=== PATIENT | male | born 1980 | race Caucasian/White ===

== ENCOUNTER → 2019-09-16 09:09 | Outpatient (BNVA) | payer MEDICARE, MEDICAID, SELFPAY | PROVIDERS: PCP Nurse Practitioner Family; Visit Provider Psychiatry & Neurology Psychiatry | DX: Z79.899 Other long term (current) drug therapy (principal) | CPT/HCPCS: 85007; 85027 ==

== ENCOUNTER → 2019-10-06 09:09 | Outpatient (BNVA) | payer MEDICARE, MEDICAID, SELFPAY | PROVIDERS: PCP Nurse Practitioner Family; Visit Provider Psychiatry & Neurology Psychiatry | DX: F20.89 Other schizophrenia (principal); F33.42 Major depressive disorder, recurrent, in full remission; F17.210 Nicotine dependence, cigarettes, uncomplicated | CPT/HCPCS: 99213 ==

== ENCOUNTER → 2019-10-18 10:53 | Outpatient (BNVA) | payer MEDICARE, MEDICAID, SELFPAY | PROVIDERS: PCP Nurse Practitioner Family; Visit Provider Psychiatry & Neurology Psychiatry | DX: Z79.899 Other long term (current) drug therapy (principal) | CPT/HCPCS: 85007; 85027 ==

== ENCOUNTER → 2019-11-30 08:05 | Outpatient (BNVA) | payer MEDICARE, MEDICAID, SELFPAY | PROVIDERS: PCP Nurse Practitioner Family; Visit Provider Psychiatry & Neurology Psychiatry | DX: F33.42 Major depressive disorder, recurrent, in full remission (principal); F20.89 Other schizophrenia; F17.210 Nicotine dependence, cigarettes, uncomplicated | CPT/HCPCS: 99214 ==

== ENCOUNTER → 2020-01-25 07:34 | Outpatient (BNVA) | payer MEDICARE, MEDICAID, SELFPAY | PROVIDERS: PCP Nurse Practitioner Family; Visit Provider Psychiatry & Neurology Psychiatry | DX: F20.89 Other schizophrenia (principal); F33.42 Major depressive disorder, recurrent, in full remission; F17.210 Nicotine dependence, cigarettes, uncomplicated | CPT/HCPCS: 99213 ==

== ENCOUNTER → 2020-02-09 11:34 | Outpatient (BNVA) | payer MEDICARE, MEDICAID, SELFPAY | PROVIDERS: PCP Nurse Practitioner Family; Visit Provider Psychiatry & Neurology Psychiatry | DX: Z79.899 Other long term (current) drug therapy (principal) | CPT/HCPCS: 85007; 85027 ==

== ENCOUNTER → 2020-03-24 11:02 | Outpatient (BNVA) | payer MEDICARE, MEDICAID, SELFPAY | PROVIDERS: PCP Nurse Practitioner Family; Visit Provider Psychiatry & Neurology Psychiatry | DX: Z79.899 Other long term (current) drug therapy (principal) | CPT/HCPCS: 85007; 85027 ==

== ENCOUNTER → 2020-04-27 10:02 | Outpatient (BNVA) | payer MEDICARE, MEDICAID, SELFPAY | PROVIDERS: PCP Nurse Practitioner Family; Visit Provider Psychiatry & Neurology Psychiatry | DX: Z79.899 Other long term (current) drug therapy (principal) | CPT/HCPCS: 85007; 85027 ==

== ENCOUNTER → 2020-05-31 10:14 | Outpatient (BNVA) | payer MEDICARE, MEDICAID, SELFPAY | PROVIDERS: PCP Nurse Practitioner Family; Visit Provider Psychiatry & Neurology Psychiatry | DX: Z79.899 Other long term (current) drug therapy (principal) | CPT/HCPCS: 85007; 85027 ==

== ENCOUNTER → 2020-06-21 07:31 | Outpatient (BNVA) | payer MEDICARE, MEDICAID, SELFPAY | PROVIDERS: PCP Nurse Practitioner Family; Visit Provider Psychiatry & Neurology Psychiatry | DX: F33.42 Major depressive disorder, recurrent, in full remission (principal); F20.89 Other schizophrenia; F17.210 Nicotine dependence, cigarettes, uncomplicated | CPT/HCPCS: 99214 ==

== ENCOUNTER → 2020-07-04 09:40 | Outpatient (BNVA) | payer MEDICARE, MEDICAID, SELFPAY | PROVIDERS: PCP Nurse Practitioner Family; Visit Provider Psychiatry & Neurology Psychiatry | DX: Z79.899 Other long term (current) drug therapy (principal) | CPT/HCPCS: 85007; 85027 ==

== ENCOUNTER → 2020-07-17 07:46 | Outpatient (BNVA) | payer MEDICARE, MEDICAID, SELFPAY | PROVIDERS: PCP Nurse Practitioner Family; Visit Provider Psychiatry & Neurology Psychiatry | DX: F33.42 Major depressive disorder, recurrent, in full remission (principal); F20.89 Other schizophrenia; F17.210 Nicotine dependence, cigarettes, uncomplicated | CPT/HCPCS: 99213 ==

== ENCOUNTER → 2020-08-08 10:17 | Outpatient (BNVA) | payer MEDICARE, MEDICAID, SELFPAY | PROVIDERS: PCP Nurse Practitioner Family; Visit Provider Psychiatry & Neurology Psychiatry | DX: Z79.899 Other long term (current) drug therapy (principal) | CPT/HCPCS: 85007; 85027 ==

== ENCOUNTER → 2020-09-05 10:10 | Outpatient (BNVA) | payer MEDICARE, MEDICAID, SELFPAY | PROVIDERS: PCP Nurse Practitioner Family; Visit Provider Psychiatry & Neurology Psychiatry | DX: F20.89 Other schizophrenia (principal); Z79.899 Other long term (current) drug therapy | CPT/HCPCS: 85007; 85027 ==

== ENCOUNTER → 2020-09-11 08:28 | Outpatient (BNVA) | payer MEDICARE, MEDICAID, SELFPAY | PROVIDERS: PCP Nurse Practitioner Family; Visit Provider Psychiatry & Neurology Psychiatry | DX: F33.42 Major depressive disorder, recurrent, in full remission (principal); F20.89 Other schizophrenia; F17.210 Nicotine dependence, cigarettes, uncomplicated | CPT/HCPCS: 99214 ==

== ENCOUNTER → 2020-10-09 09:09 | Outpatient (BNVA) | payer MEDICARE, MEDICAID, SELFPAY | PROVIDERS: PCP Nurse Practitioner Family; Visit Provider Psychiatry & Neurology Psychiatry | DX: F20.89 Other schizophrenia (principal); Z79.899 Other long term (current) drug therapy | CPT/HCPCS: 85007; 85027 ==

== ENCOUNTER 2020-10-23 12:36 | Outpatient (CLI) | payer MEDICARE, MEDICAID, SELFPAY ==
[2020-10-23 13:43] LABS: Basophils % 0.3 %; Eosinophils # 0.2 10^3/uL (0.0-0.8); Eosinophils % 1.5 %; Hematocrit 50.4 % (42.0-52.0); Hemoglobin 16.8 g/dL (11.7-16.6); Lymphocytes # 1.9 10^3/uL (0.8-4.8); Lymphocytes % 18.9 %; Mean Corpuscular HGB Conc 33.3 g/dL (30.0-36.0); Mean Corpuscular Hemoglobin 33.3 pg (28.0-34.0); Mean Platelet Volume 12.1 fL (7.4-10.4); Monocytes # 0.4 10^3/uL (0.2-0.9); Monocytes % 4.3 %; Neutrophils # 7.47 10^3/uL (1.8-7.7); Neutrophils % 74.6 %; Nucleated Red Blood Cells % 0 %; Platelet Count 85 10^3/cmm (130-400); Red Blood Count 5.04 10^6/uL (4.1-5.3); Red Cell Distribution Width 13.4 % (12.1-15.1)
--- NOTE | 2020-10-23 15:32 | ONC FU_ITS ---
Dr. Enriquez follow up note Patient: Jose Medina Unit #: [id number]: 1980 Dicatated By: Deann Enriquez M.D.Date of Visit:Oct 23, 2020 Onc Med Follow-up/Prog Note History of Present Illness: Mr. Jose Medina, is a 39-year-old gentleman with a history of self-limiting thrombocytopenia about a year ago, as per patient at that time he went to local urgent care where his repeat CBC shows resolution of isolated thrombocytopenia, as per patient he was followed on monthly basis and follow-up lab work-up did not show recurrence of thrombocytopenia until recently when his lab work-up done on October 09, 2020 which shows white blood count 9.2 hemoglobin 17.2 hematocrit 51.1 platelets 74,000. As per patient in September 2020, he did develop flulike symptoms, lethargic generalized weakness and fatigue, poor appetite and taste, not sure about loss of smell since. Symptoms lasted for a few days then improved on its own. Patient works at [employer] said no one takes COVID-19 precautions there, there is a good possibility he may have exposed to COVID-19 positive person. Patient denies any history of night sweats, weight loss, recurrent fever or peripheral lymphadenopathy or abdominal fullness. Denies any nosebleed or gum bleed or hemoptysis or hematemesis, denies any melena or hematochezia denies any jaundice. Patient denies any alcohol use but smoked 1 pack a day His past medical history significant for depression, schizophrenia, he is on clozapine, Celexa, propanolol, atropine 1% sublingual twice a day. Medications: amLODIPine Besylate 1 Tablet (of 5 mg) Oral daily, CeleXA 1 Tablet (of 40 mg) Oral daily, cloZAPine 1.5 Tablet (of 100 mg) Oral at bedtime, diazePAM 1 Tablet (of 5 mg) Oral t.i.d., Propranolol HCl 1 Tablet (of 40 mg) Oral t.i.d. Allergies: No Known Allergies. Review of Systems: Review of Systems is not available for this patient. Vital Signs: Performed on Oct 23, 2020 14:22 Weight - 192.4 lbs (HIGH) BSA - 0.00 sq.m BMI - 0.00 Temperature - 97.7 F (LOW) Pulse - 70 /min Respiration - 18 /min BP - 146/101 mm(hg) (HIGH) O2 Sat - 98 % Pain - 4 Fatigue - 7 Performance Status: 0 - Fully active, able to carry on all predisease activities without restrictions. (ECOG) Physical Examination: ENMT - No mouth sores, no thrush, no jaundice, Respiratory - Lungs are clear to auscultation, Cardiovascular - Regular rate and rhythm of heart, Abdomen - Soft, bowel sounds present, Extremities - No visible edema, no peripheral lymphadenopathy. Lab/Imaging: Most recent lab results are not available for this patient. Impression: Isolated thrombocytopenia, etiology could be multifactorial including recurrent ITP or drug-induced ITP especially with citalopram (Celexa) or bone marrow suppression due to clozapine or due to history of subclinical viral infection ? Covid 19 But never been tested. Mild polycythemia probably due to chronic smoking Depression/schizophrenia Chronic smoking Plan: Discussed with patient regarding his labs from today shows white blood count 10 hemoglobin 16.8 hematocrit 50.4 platelets 85,000 compared to 74,000 earlier Clinically, patient doing well with no new signs symptom suggestive of gross or microscopic bleeding, his follow-up CBC shows improvement in his platelet count At this point we will review his peripheral blood smear, to rule out any platelet clumping. As far as etiology of isolated thrombocytopenia is concerned, it could be recurrent ITP as patient has history of self-limiting isolated thrombocytopenia. Other possibility could be drug-induced ITP especially with Celexa or could be due to clozapine induced bone marrow suppression but his white blood count is normal and leukopenia is more common than thrombocytopenia. As patient has history of self-limiting isolated thrombocytopenia, his follow-up labs shows improvement in his platelet count with a normal remaining CBC, we will monitor him and he will return to clinic in 2 weeks with CBC. Signed By: Deann Enriquez M.D. <<Signature on File>>
[2020-11-15 10:23] LABS: Miscellaneous Test See Scanned Lab Rpt
== END 2020-10-23 12:37 | disposition home or self-care (01) ==
LOC: ONCMED 12:39
PROVIDERS: PCP Family Medicine; Visit Provider Internal Medicine Hematology & Oncology
DX: D69.6 Thrombocytopenia, unspecified (principal); D75.1 Secondary polycythemia; F17.210 Nicotine dependence, cigarettes, uncomplicated; F32.9 Major depressive disorder, single episode, unspecified; F20.9 Schizophrenia, unspecified; Z79.899 Other long term (current) drug therapy
CPT/HCPCS: 36415; 80500; 85025; 88184; 88185; 99204

== ENCOUNTER → 2020-10-24 10:31 | Outpatient (BNVA) | payer MEDICARE, MEDICAID, SELFPAY | PROVIDERS: PCP Family Medicine; Visit Provider Specialist | DX: R20.0 Anesthesia of skin (principal); G56.23 Lesion of ulnar nerve, bilateral upper limbs; F17.210 Nicotine dependence, cigarettes, uncomplicated | CPT/HCPCS: 95910 ==

== ENCOUNTER → 2020-11-06 09:04 | Outpatient (BNVA) | payer MEDICARE, MEDICAID, SELFPAY | PROVIDERS: PCP Family Medicine; Visit Provider Psychiatry & Neurology Psychiatry | DX: F20.89 Other schizophrenia (principal); F33.42 Major depressive disorder, recurrent, in full remission; F17.210 Nicotine dependence, cigarettes, uncomplicated | CPT/HCPCS: 99213 ==

== ENCOUNTER → 2020-11-07 07:29 | Outpatient (BNVA) | payer MEDICARE, MEDICAID, SELFPAY | PROVIDERS: PCP Family Medicine; Visit Provider Psychiatry & Neurology Psychiatry | DX: F20.89 Other schizophrenia (principal); F33.42 Major depressive disorder, recurrent, in full remission | CPT/HCPCS: 99215 ==

== ENCOUNTER 2020-11-09 14:03 | Outpatient (CLI) | payer MEDICARE, MEDICAID, SELFPAY ==
[2020-11-09 15:06] LABS: Basophils # 0.1 10^3/uL (0.0-0.1); Basophils % 0.5 %; Eosinophils # 0.1 10^3/uL (0.0-0.8); Eosinophils % 1.1 %; Lymphocytes # 2.4 10^3/uL (0.8-4.8); Lymphocytes % 21.3 %; Mean Corpuscular Hemoglobin 33.2 pg (28.0-34.0); Mean Corpuscular Volume 97.5 fL (80-94); Monocytes # 0.5 10^3/uL (0.2-0.9); Monocytes % 4.8 %; Neutrophils # 7.96 10^3/uL (1.8-7.7); Neutrophils % 72.1 %; Nucleated Red Blood Cells % 0 %; Platelet Count 76 10^3/cmm (130-400); Red Blood Count 4.82 10^6/uL (4.1-5.3); Red Cell Distribution Width 12.7 % (12.1-15.1)
--- NOTE | 2020-11-09 15:58 | ONC FU_ITS ---
Dr. Enriquez follow up note Patient: Jose Medina Unit #: [id number]: 1980 Dicatated By: Deann Enriquez M.D.Date of Visit:Nov 09, 2020 Onc Med Follow-up/Prog Note History of Present Illness: Mr. Jose Medina, is a 39-year-old gentleman with a history of self-limiting thrombocytopenia about a year ago, as per patient at that time he went to local urgent care where his repeat CBC shows resolution of isolated thrombocytopenia, as per patient he was followed on monthly basis and follow-up lab work-up did not show recurrence of thrombocytopenia until recently when his lab work-up done on October 09, 2020 which shows white blood count 9.2 hemoglobin 17.2 hematocrit 51.1 platelets 74,000. As per patient in September 2020, he did develop flulike symptoms, lethargic generalized weakness and fatigue, poor appetite and taste, not sure about loss of smell since. Symptoms lasted for a few days then improved on its own. Patient works at [employer] said no one takes COVID-19 precautions there, there is a good possibility he may have exposed to COVID-19 positive person. Patient denies any history of night sweats, weight loss, recurrent fever or peripheral lymphadenopathy or abdominal fullness. Denies any nosebleed or gum bleed or hemoptysis or hematemesis, denies any melena or hematochezia denies any jaundice. Patient denies any alcohol use but smoked 1 pack a day His past medical history significant for depression, schizophrenia, he is on clozapine, Celexa, propanolol, atropine 1% sublingual twice a day., Peripheral blood smear shows questionable atypical cell and decreased platelets, whole blood flow cytometry was done on October 24, 2020 shows no aberrant myeloid or lymphoid population detected Came for follow-up, denies any specific complaints, no fever chills, no nausea or vomiting, no diarrhea or constipation, no melena or hematochezia, no nosebleed or gum bleed no petechia or ecchymosis Medications: amLODIPine Besylate 1 Tablet (of 5 mg) Oral daily, CeleXA 1 Tablet (of 40 mg) Oral daily, cloZAPine 1.5 Tablet (of 100 mg) Oral at bedtime, diazePAM 1 Tablet (of 5 mg) Oral t.i.d., Propranolol HCl 1 Tablet (of 40 mg) Oral t.i.d. Allergies: No Known Allergies. Review of Systems: Review of Systems is not available for this patient. Vital Signs: Performed on Nov 09, 2020 15:23 Height - 70 in Weight - 192 lbs (LOW) BSA - 2.05 sq.m BMI - 27.55 Temperature - 98.0 F (LOW) Pulse - 68 /min Respiration - 18 /min BP - 147/93 mm(hg) (HIGH) O2 Sat - 99 % Pain - 6 Performance Status: 0 - Fully active, able to carry on all predisease activities without restrictions. (ECOG) Physical Examination: ENMT - Mouth sores, no thrush, no jaundice, Respiratory - Lungs are clear to auscultation, Cardiovascular - Regular rate and rhythm of heart, Abdomen - Soft, bowel sounds present, Extremities - No visible edema. Lab/Imaging: Most recent lab results are not available for this patient. Impression: Isolated thrombocytopenia, etiology could be multifactorial including recurrent ITP or drug-induced ITP especially with citalopram (Celexa) or bone marrow suppression due to clozapine or due to history of subclinical viral infection ? Covid 19 But never been tested. Mild leukocytosis, questionable atypical cells seen on peripheral blood smear, whole blood flow cytometry done on October 24, 2020 shows no aberrant myeloid or lymphoid cell seen Mild polycythemia probably due to chronic smoking Depression/schizophrenia Chronic smoking Plan: Discussed with patient regarding his labs white blood count 11 hemoglobin 16 hematocrit 47 compared to 50.4 previously platelets 76,000 with normal differential And whole blood flow cytometry result which was unremarkable Clinically, patient doing well with no signs symptom suggestive of gross bleeding hemoglobin is in normal range but patient has persistent mild/moderate isolated thrombocytopenia, etiology unclear him but could be either drug-induced like Celexa or clozapine, as platelet count is stable so we will continue to monitor return to clinic in 1 month with CBC if there is a worsening of thrombocytopenia will consider abdominal sonogram to rule out splenomegaly and then hold either Celexa or clozapine, if no improvement, will consider bone marrow evaluation His peripheral blood smear showed atypical cells and his CBC showed mild leukocytosis whole blood flow cytometry was ordered and it showed no aberrant myeloid or lymphoid population detected. Signed By: Deann Enriquez M.D. <<Signature on File>>
== END 2020-11-09 14:04 | disposition home or self-care (01) ==
PROVIDERS: PCP Family Medicine; Visit Provider Internal Medicine Hematology & Oncology
DX: D69.3 Immune thrombocytopenic purpura (principal); D72.829 Elevated white blood cell count, unspecified; D75.1 Secondary polycythemia; F32.9 Major depressive disorder, single episode, unspecified; F20.9 Schizophrenia, unspecified; F17.200 Nicotine dependence, unspecified, uncomplicated; Z79.899 Other long term (current) drug therapy
CPT/HCPCS: 36415; 85025; 99214

== ENCOUNTER → 2020-11-20 13:10 | Outpatient (BNVA) | payer MEDICARE, MEDICAID, SELFPAY | PROVIDERS: PCP Family Medicine; Referring Provider Family Medicine; Visit Provider Specialist | DX: G56.23 Lesion of ulnar nerve, bilateral upper limbs (principal) | CPT/HCPCS: 73110 ==

== ENCOUNTER → 2020-11-22 08:09 | Outpatient (BNVA) | payer MEDICARE, MEDICAID, SELFPAY | PROVIDERS: PCP Family Medicine; Visit Provider Psychiatry & Neurology Psychiatry | DX: F20.89 Other schizophrenia (principal); F33.42 Major depressive disorder, recurrent, in full remission; F17.210 Nicotine dependence, cigarettes, uncomplicated; D69.6 Thrombocytopenia, unspecified | CPT/HCPCS: 99214 ==

== ENCOUNTER 2020-12-13 13:54 | Outpatient (CLI) | payer MEDICARE, MEDICAID, SELFPAY ==
[2020-12-13 14:44] LABS: Basophils % 0.4 %; Eosinophils # 0.2 10^3/uL (0.0-0.8); Eosinophils % 1.3 %; Hematocrit 47.3 % (42.0-52.0); Mean Corpuscular HGB Conc 33.8 g/dL (30.0-36.0); Mean Corpuscular Hemoglobin 33.2 pg (28.0-34.0); Mean Corpuscular Volume 98.1 fL (80-94); Mean Platelet Volume 12.2 fL (7.4-10.4); Monocytes # 0.6 10^3/uL (0.2-0.9); Monocytes % 5.2 %; Neutrophils # 8.45 10^3/uL (1.8-7.7); Neutrophils % 74.7 %; Nucleated Red Blood Cells % 0 %; Platelet Count 57 10^3/cmm (130-400); Red Blood Count 4.82 10^6/uL (4.1-5.3); White Blood Count 11.3 10^3/uL (4.0-10.0)
--- NOTE | 2021-01-05 12:09 | ONC FU_ITS ---
Dr. Enriquez follow up note Patient: Jose Medina Unit #: [id number]: 1980 Dicatated By: Deann Enriquez M.D.Date of Visit:December 13, 2020 Onc Med Follow-up/Prog Note History of Present Illness: Mr. Jose Medina, is a 40-year-old gentleman with a history of self-limiting thrombocytopenia about a year ago, as per patient at that time he went to local urgent care where his repeat CBC shows resolution of isolated thrombocytopenia, as per patient he was followed on monthly basis and follow-up lab work-up did not show recurrence of thrombocytopenia until recently when his lab work-up done on October 09, 2020 which shows white blood count 9.2 hemoglobin 17.2 hematocrit 51.1 platelets 74,000. As per patient in September 2020, he did develop flulike symptoms, lethargic generalized weakness and fatigue, poor appetite and taste, not sure about loss of smell since. Symptoms lasted for a few days then improved on its own. Patient works at [employer] said no one takes COVID-19 precautions there, there is a good possibility he may have exposed to COVID-19 positive person. Patient denies any history of night sweats, weight loss, recurrent fever or peripheral lymphadenopathy or abdominal fullness. Denies any nosebleed or gum bleed or hemoptysis or hematemesis, denies any melena or hematochezia denies any jaundice. Patient denies any alcohol use but smoked 1 pack a day His past medical history significant for depression, schizophrenia, he is on clozapine, Celexa, propanolol, atropine 1% sublingual twice a day., Peripheral blood smear shows questionable atypical cell and decreased platelets, whole blood flow cytometry was done on October 24, 2020 shows no aberrant myeloid or lymphoid population detected Came for follow-up, denies any specific complaints except generalized weakness and fatigue but no nausea or vomiting no diarrhea or constipation, no melena or hematochezia, no hemoptysis or hematemesis, no petechia or ecchymosis, no nosebleed or gum bleed Medications: amLODIPine Besylate 1 Tablet (of 5 mg) Oral daily, CeleXA 1 Tablet (of 40 mg) Oral daily, cloZAPine 1.5 Tablet (of 100 mg) Oral at bedtime, diazePAM 1 Tablet (of 5 mg) Oral t.i.d., Propranolol HCl 1 Tablet (of 40 mg) Oral t.i.d. Allergies: No Known Allergies. Review of Systems: Review of Systems is not available for this patient. Vital Signs: Performed on December 13, 2020 15:15 Height - 70.00 in Weight - 193.0 lbs (HIGH) BSA - 2.06 sq.m BMI - 27.69 Temperature - 97.4 F (LOW) Pulse - 67 /min Respiration - 18 /min BP - 134/91 mm(hg) O2 Sat - 98 % Pain - 0 Performance Status: 0 - Fully active, able to carry on all predisease activities without restrictions. (ECOG) Physical Examination: ENMT - No mouth sores, no thrush, no jaundice, no cervical or supraclavicular lymphadenopathy, Respiratory - Lungs are clear to auscultation, Cardiovascular - Regular rate and rhythm of heart, Abdomen - Soft, bowel sounds present, no tenderness, Extremities - No visible edema rash, petechiae or ecchymosis. Lab/Imaging: Most recent lab results are not available for this patient. Impression: Isolated thrombocytopenia, etiology could be multifactorial including recurrent ITP or drug-induced ITP especially with citalopram (Celexa) or bone marrow suppression due to clozapine or due to history of subclinical viral infection ? Covid 19 But never been tested. Mild leukocytosis, questionable atypical cells seen on peripheral blood smear, whole blood flow cytometry done on October 24, 2020 shows no aberrant myeloid or lymphoid cell seen Mild polycythemia probably due to chronic smoking Depression/schizophrenia Chronic smoking Plan: Discussed with patient regarding his labs white blood count 11.3 hemoglobin 16 hematocrit 47.3 platelets 57,000 compared to 76,000 previously with normal differential Clinically, patient is doing reasonably well with no sign of gross bleeding, CBC shows hemoglobin in normal range and stable, persistent mild leukocytosis with unremarkable whole blood flow cytometry, persistent but progressive moderate thrombocytopenia etiology still unclear could medication related like Celexa, at this point patient was advised to hold Celexa for 2 weeks and then he will return to clinic on Friday week with CBC in the meantime we will also order abdominal sonogram to check spleen size. If sonogram is normal and by holding Celexa there is no improvement in his thrombocytopenia, will consider bone marrow evaluation. Patient was advised in case he has any sign of bleeding, he need to call us or go to hospital for evaluation. Signed By: Deann Enriquez M.D. <<Signature on File>>
== END 2020-12-13 13:55 | disposition home or self-care (01) ==
LOC: ONCMED 13:59
PROVIDERS: PCP Family Medicine; Visit Provider Internal Medicine Hematology & Oncology
DX: D69.6 Thrombocytopenia, unspecified (principal); D75.1 Secondary polycythemia; F17.210 Nicotine dependence, cigarettes, uncomplicated; F32.9 Major depressive disorder, single episode, unspecified; F20.9 Schizophrenia, unspecified; Z79.899 Other long term (current) drug therapy
CPT/HCPCS: 85025; 99214

== ENCOUNTER 2020-12-22 06:50 | Outpatient (CLI) | payer MEDICARE, MEDICAID, SELFPAY ==
--- NOTE | 2020-12-22 07:10 | US_ITS ---
WS: [id number] Limited abdomen ultrasound. HISTORY: Evaluate spleen. History of thrombocytopenia. COMPARISON: None. Spleen measures 12.3 x 6.5 cm. Normal hilum of the spleen. No focal masses or abnormal echogenicity. No adjacent ascites. US/US abdomen limited [id number] IMPRESSION: Spleen is top normal size.
== END 2020-12-22 06:51 | disposition home or self-care (01) ==
PROVIDERS: PCP Family Medicine; Visit Provider Internal Medicine Hematology & Oncology
DX: D69.6 Thrombocytopenia, unspecified (principal)
CPT/HCPCS: 76705

== ENCOUNTER 2020-12-27 05:52 | Outpatient (CLI) | payer MEDICARE, MEDICAID, SELFPAY ==
[2020-12-27 09:12] LABS: Basophils % 0.5 %; Eosinophils # 0.2 10^3/uL (0.0-0.8); Eosinophils % 1.7 %; Hematocrit 45.2 % (42.0-52.0); Hemoglobin 15.2 g/dL (11.7-16.6); Lymphocytes # 1.8 10^3/uL (0.8-4.8); Mean Corpuscular HGB Conc 33.6 g/dL (30.0-36.0); Mean Corpuscular Hemoglobin 33.6 pg (28.0-34.0); Mean Corpuscular Volume 99.8 fL (80-94); Mean Platelet Volume 12.3 fL (7.4-10.4); Monocytes # 0.5 10^3/uL (0.2-0.9); Monocytes % 5.4 %; Neutrophils # 6.12 10^3/uL (1.8-7.7); Neutrophils % 71.2 %; Nucleated Red Blood Cells % 0 %; Platelet Count 61 10^3/cmm (130-400); Red Blood Count 4.53 10^6/uL (4.1-5.3); Red Cell Distribution Width 13.1 % (12.1-15.1); White Blood Count 8.6 10^3/uL (4.0-10.0)
--- NOTE | 2020-12-27 13:58 | ONC FU_ITS ---
Dr. Enriquez follow up note Patient: Jose Medina Unit #: [id number]: 1980 Dicatated By: Deann Enriquez M.D.Date of Visit:December 27, 2020 Onc Med Follow-up/Prog Note History of Present Illness: Mr. Jose Medina, is a 40-year-old gentleman with a history of self-limiting thrombocytopenia about a year ago, as per patient at that time he went to local urgent care where his repeat CBC shows resolution of isolated thrombocytopenia, as per patient he was followed on monthly basis and follow-up lab work-up did not show recurrence of thrombocytopenia until recently when his lab work-up done on October 09, 2020 which shows white blood count 9.2 hemoglobin 17.2 hematocrit 51.1 platelets 74,000. As per patient in September 2020, he did develop flulike symptoms, lethargic generalized weakness and fatigue, poor appetite and taste, not sure about loss of smell since. Symptoms lasted for a few days then improved on its own. Patient works at [employer] said no one takes COVID-19 precautions there, there is a good possibility he may have exposed to COVID-19 positive person. Patient denies any history of night sweats, weight loss, recurrent fever or peripheral lymphadenopathy or abdominal fullness. Denies any nosebleed or gum bleed or hemoptysis or hematemesis, denies any melena or hematochezia denies any jaundice. Patient denies any alcohol use but smoked 1 pack a day His past medical history significant for depression, schizophrenia, he is on clozapine, Celexa, propanolol, atropine 1% sublingual twice a day., Peripheral blood smear shows questionable atypical cell and decreased platelets, whole blood flow cytometry was done on October 24, 2020 shows no aberrant myeloid or lymphoid population detected Came for follow-up, denies any specific complaints, no fever chills, no nausea or vomiting, no diarrhea constipation, no nosebleed or gum bleed no petechia or ecchymosis, patient did not take Celexa for 2 weeks as recommended, To rule out medicine related thrombocytopenia Medications: amLODIPine Besylate 1 Tablet (of 5 mg) Oral daily, CeleXA 1 Tablet (of 40 mg) Oral daily, cloZAPine 1.5 Tablet (of 100 mg) Oral at bedtime, diazePAM 1 Tablet (of 5 mg) Oral t.i.d., Propranolol HCl 1 Tablet (of 40 mg) Oral t.i.d. Allergies: No Known Allergies. Review of Systems: Review of Systems is not available for this patient. Vital Signs: Performed on December 27, 2020 11:06 Height - 70.00 in Weight - 199.8 lbs (HIGH) BSA - 2.09 sq.m BMI - 28.67 Temperature - 98.0 F (LOW) Pulse - 63 /min Respiration - 18 /min BP - 154/99 mm(hg) (HIGH) O2 Sat - 96 % Pain - 0 Performance Status: 0 - Fully active, able to carry on all predisease activities without restrictions. (ECOG) Physical Examination: ENMT - No mouth sores, no thrush, no jaundice, Respiratory - Lungs are clear to auscultation, Cardiovascular - Regular rate and rhythm of heart, Abdomen - Soft, bowel sounds present, Extremities - No visible edema, rash , Ecchymosis or petechiae. Lab/Imaging: Most recent lab results are not available for this patient. Impression: Isolated thrombocytopenia, etiology could be multifactorial including recurrent ITP or drug-induced ITP especially with citalopram (Celexa) or bone marrow suppression due to clozapine or due to history of subclinical viral infection ? Covid 19 But never been tested. Mild leukocytosis, questionable atypical cells seen on peripheral blood smear, whole blood flow cytometry done on October 24, 2020 shows no aberrant myeloid or lymphoid cell seen Mild polycythemia probably due to chronic smoking Depression/schizophrenia Chronic smoking Abdominal sonogram done on December 22, 2020 shows no splenomegaly Plan: Discussed with patient regarding his labs white blood count 8.6 hemoglobin 15.2 hematocrit 45.2 platelets 61,000 Clinically, patient doing well with no new signs symptoms, no evidence of gross bleeding, his follow-up labs shows persistent mild/moderate isolated thrombocytopenia, his abdominal sonogram shows no splenomegaly, patient was advised to hold Celexa for 2 weeks to see if his thrombocytopenia is due to Celexa but there is no improvement in his counts, at this point we will consider bone marrow evaluation to rule out primary bone marrow disorder, patient return to clinic in 1 week after bone marrow evaluation Signed By: Deann Enriquez M.D. <<Signature on File>>
== END 2020-12-27 05:53 | disposition home or self-care (01) ==
LOC: ONCMED 05:54
PROVIDERS: PCP Family Medicine; Visit Provider Internal Medicine Hematology & Oncology
DX: D69.6 Thrombocytopenia, unspecified (principal); D72.820 Lymphocytosis (symptomatic); D75.1 Secondary polycythemia; F17.210 Nicotine dependence, cigarettes, uncomplicated; F32.9 Major depressive disorder, single episode, unspecified; F20.9 Schizophrenia, unspecified; Z79.899 Other long term (current) drug therapy
CPT/HCPCS: 36415; 85025; 99214

== ENCOUNTER → 2021-01-03 07:43 | Outpatient (BNVA) | payer MEDICARE, MEDICAID, SELFPAY | PROVIDERS: PCP Family Medicine; Visit Provider Psychiatry & Neurology Psychiatry | DX: F20.89 Other schizophrenia (principal); F33.42 Major depressive disorder, recurrent, in full remission; F17.210 Nicotine dependence, cigarettes, uncomplicated | CPT/HCPCS: 99215 ==

== ENCOUNTER → 2021-02-23 09:31 | Outpatient (BNVA) | payer MEDICARE, MEDICAID, SELFPAY | PROVIDERS: PCP Family Medicine; Visit Provider Psychiatry & Neurology Psychiatry | DX: F20.89 Other schizophrenia (principal); Z79.899 Other long term (current) drug therapy | CPT/HCPCS: 85007; 85027 ==

== ENCOUNTER → 2021-03-01 10:24 | Outpatient (BNVA) | payer MEDICARE, MEDICAID, SELFPAY | PROVIDERS: PCP Family Medicine; Visit Provider Psychiatry & Neurology Psychiatry | DX: F20.89 Other schizophrenia (principal); F33.42 Major depressive disorder, recurrent, in full remission; F17.210 Nicotine dependence, cigarettes, uncomplicated; F41.1 Generalized anxiety disorder | CPT/HCPCS: 99215 ==

== ENCOUNTER → 2021-03-29 09:54 | Outpatient (BNVA) | payer MEDICARE, MEDICAID, SELFPAY | PROVIDERS: PCP Family Medicine; Visit Provider Psychiatry & Neurology Psychiatry | DX: F33.42 Major depressive disorder, recurrent, in full remission (principal); F41.1 Generalized anxiety disorder; F20.89 Other schizophrenia; Z79.899 Other long term (current) drug therapy; R20.0 Anesthesia of skin; D69.6 Thrombocytopenia, unspecified; N53.14 Retrograde ejaculation; F17.210 Nicotine dependence, cigarettes, uncomplicated | CPT/HCPCS: 85007; 85027; 99214 ==

== ENCOUNTER → 2021-05-04 10:01 | Outpatient (BNVA) | payer MEDICARE, MEDICAID, SELFPAY | PROVIDERS: PCP Family Medicine; Visit Provider Psychiatry & Neurology Psychiatry | DX: F20.89 Other schizophrenia (principal); Z79.899 Other long term (current) drug therapy | CPT/HCPCS: 85007; 85027 ==

== ENCOUNTER 2021-05-17 06:00 | Outpatient (RCR) | payer MEDICARE, MEDICAID, SELFPAY | END 2021-06-10 23:59 | disposition home or self-care (01) | LOC: TPT 06:00 | PROVIDERS: PCP Family Medicine; Referring Provider Family Medicine; Visit Provider Family Medicine | DX: G56.22 Lesion of ulnar nerve, left upper limb (principal) | CPT/HCPCS: 97110; 97140; 97162 ==

== ENCOUNTER → 2021-05-23 08:38 | Outpatient (BNVA) | payer MEDICARE, MEDICAID, SELFPAY | PROVIDERS: PCP Family Medicine; Visit Provider Specialist | DX: G56.23 Lesion of ulnar nerve, bilateral upper limbs (principal); F17.210 Nicotine dependence, cigarettes, uncomplicated | CPT/HCPCS: 95861; 99202 ==

== ENCOUNTER 2021-06-11 06:00 | Outpatient (RCR) | payer MEDICARE, MEDICAID, SELFPAY | END 2021-07-10 23:59 | disposition home or self-care (01) | LOC: TPT 06:00 | PROVIDERS: PCP Family Medicine; Referring Provider Family Medicine; Visit Provider Family Medicine | DX: G56.22 Lesion of ulnar nerve, left upper limb (principal) | CPT/HCPCS: 97110; 97140; 97164 ==

== ENCOUNTER → 2021-06-12 10:15 | Outpatient (BNVA) | payer MEDICARE, MEDICAID, SELFPAY | PROVIDERS: PCP Family Medicine; Visit Provider Psychiatry & Neurology Psychiatry | DX: F20.89 Other schizophrenia (principal); Z79.899 Other long term (current) drug therapy | CPT/HCPCS: 85007; 85027 ==

== ENCOUNTER → 2021-06-14 13:57 | Outpatient (BNVA) | payer MEDICARE, MEDICAID, SELFPAY | PROVIDERS: PCP Family Medicine; Visit Provider Psychiatry & Neurology Psychiatry | DX: F20.89 Other schizophrenia (principal); F33.42 Major depressive disorder, recurrent, in full remission; F17.210 Nicotine dependence, cigarettes, uncomplicated; F41.1 Generalized anxiety disorder | CPT/HCPCS: 99214 ==

== ENCOUNTER → 2021-06-26 17:37 | Outpatient (BNVA) | payer MEDICARE, MEDICAID, SELFPAY | PROVIDERS: PCP Family Medicine; Visit Provider Nurse Practitioner Family | DX: Z20.822 Contact with and (suspected) exposure to COVID-19 (principal); Z11.52 Encounter for screening for COVID-19 | CPT/HCPCS: 87635 ==

== ENCOUNTER → 2021-08-15 14:02 | Outpatient (BNVA) | payer MEDICARE, MEDICAID, SELFPAY | PROVIDERS: PCP Family Medicine; Visit Provider Psychiatry & Neurology Psychiatry | DX: F20.89 Other schizophrenia (principal); Z79.899 Other long term (current) drug therapy | CPT/HCPCS: 85007; 85027 ==

== ENCOUNTER → 2021-08-20 10:20 | Outpatient (BNVA) | payer MEDICARE, MEDICAID, SELFPAY | PROVIDERS: PCP Family Medicine; Visit Provider Specialist | DX: Z20.822 Contact with and (suspected) exposure to COVID-19 (principal); G56.03 Carpal tunnel syndrome, bilateral upper limbs; Z01.818 Encounter for other preprocedural examination | CPT/HCPCS: 87635 ==

== ENCOUNTER 2021-08-24 09:00 | Day surgery (SDC) | payer MEDICARE, MEDICAID, SELFPAY ==
[2021-08-23 12:16] VITALS: BMI 24.2
[2021-08-24] VITALS (8 sets, daily range): BP systolic 141–164; BP diastolic 100–117; PULSE 58–68; RESP 12–18; TEMP 36.1–36.6; O2SAT 95–100
--- NOTE | 2021-08-24 10:03 | W.PM.OPSUD ---
Surgery/Procedure H&P Update DATE OF PROCEDURE: August 24, 2021 DATE H&P PERFORMED: 07/30/22 PREOP DIAGNOSIS: Right cubital tunnel syndrome PLANNED PROCEDURE: Operation Date: 08/24/21 10:30 Proposed Procedures p Cubital Tunnel Release [id number] G56.20(Right) - Deandra Howard MD Related Problem List Diagnoses (1) Entrapment of right ulnar nerve at elbow:
[2021-08-24] MEDS: acetaminophen 1,000 MG/100 ML PIGGYBACK 400 MG IV (10:10)
[2021-08-24] MEDS: sodium chloride 0.9% 1,000 ML 30 ML IV (10:10)
--- NOTE | 2021-08-24 10:19 | ANES.PREANE2 ---
Pre-Anesthetic Assessment Pre-Anesthetic Assessment: Height/Weight: Height 1.78 m Weight 76.657 kg Temp Pulse Resp Pulse Ox 97.8 F 68 16 100 08/24/21 09:49 08/24/21 09:49 08/24/21 09:49 08/24/21 09:49 Preop Diagnosis: Right cubital tunnel syndrome Proposed Procedure: Operation Date: 08/24/21 10:30 Proposed Procedures p Cubital Tunnel Release 46563 G56.20(Right) - Deandra Howard MD Familial anesthetic complications: None Was Beta Felipe taken within 24 hours: N/A Was Clonidine taken within 24 hours: N/A Last intake: Intake Last Liquid Date 08/23/21 Last Liquid Time 20:30 Last Solid Date 08/23/21 Last Solid Time 18:30 Social: Social History: Tobacco and No alcohol Exam: Pre-Anes Outpt Exam: alert, oriented x 3, clear to auscultation bilaterally and regular rate & rhythm Airway: MP: 2 Dentition: False Neuropsych: Neuropsych: Anxiety and Depression Anesthetic Plan: ASA status: 2 Anesthesia: MAC and Regional (specify below) Risk of > 500 ml blood loss (7ml/kg in children): No PFSH Anesthesia PFSH: Medical History Cigarette smoker Major depression, recurrent, full remission Other schizophrenia Other stimulant dependence, in remission Psychiatric care Social History Quit status (tobacco): considering quitting Second hand smoke exposure: Yes Data Anesthesia Cardiac Studies: No Data to Display
[2021-08-24] MEDS: CELEcoxib 200 mg Capsule 400 MG PO (10:25)
[2021-08-24 10:43] LABS: Basophils % 0.4 %; Eosinophils # 0.2 10^3/uL (0.0-0.8); Eosinophils % 1.7 %; Hematocrit 47.1 % (42.0-52.0); Hemoglobin 15.6 g/dL (11.7-16.6); Lymphocytes # 2.2 10^3/uL (0.8-4.8); Mean Corpuscular HGB Conc 33.1 g/dL (30.0-36.0); Mean Corpuscular Hemoglobin 33.1 pg (28.0-34.0); Mean Platelet Volume 12.4 fL (7.4-10.4); Monocytes # 0.5 10^3/uL (0.2-0.9); Monocytes % 5.6 %; Neutrophils % 69.1 %; Nucleated Red Blood Cells % 0 %; Platelet Count 62 10^3/cmm (130-400); Red Blood Count 4.71 10^6/uL (4.1-5.3); Red Cell Distribution Width 12.9 % (12.1-15.1); White Blood Count 9.4 10^3/uL (4.0-10.0)
[2021-08-24 11:01] LABS: Alanine Aminotransferase 41 U/L (0-41); Albumin Level 4.1 g/dL (3.5-5.2); Alkaline Phosphatase 85 IU/L (40-130); Aspartate Amino Transferase 41 U/L (0-40); Blood Urea Nitrogen 10 mg/dL (6-20); Calcium 8.8 mg/dL (8.5-10.5); Carbon Dioxide 25 mmol/L (22-29); Chloride 106 mmol/L (98-107); Globulin 2.2 g/dL (1.3-4.6); Glomerular Filtration Rate 123.7 mL/min (90-130); Glucose 83 mg/dL (65-115); Osmolality Calculated 294 mOsm/kg (285-295); Sodium 143 mmol/L (136-145); Total Protein 6.3 g/dL (6.6-8.7)
[2021-08-24] MEDS: ceFAZolin 1,000 mg SDV 1000 MG IRRIGATION (12:09)
--- NOTE | 2021-08-24 13:16 | P.PCN_ITS ---
PACU note PACU note: VSS, Good respiratory effort, report to FINAL RAIL CUTTER
--- NOTE | 2021-08-24 13:16 | PM.PACU ---
PACU note PACU note: VSS, Good respiratory effort, report to MEDICAL APPOINTMENT CLERK
--- NOTE | 2021-08-24 13:46 | PM.OP ---
Operative Report Date of procedure: August 24, 2021 Pre-op Diagnosis: Right cubital tunnel syndrome Post-op diagnosis: same Post-op Findings: Compression across the ulnar nerve at the cubital tunnel Procedure Done: Right ulnar nerve decompression at elbow, cubital tunnel release Specimens removed/disposition: None Pathology: none sent Surgeon: Deandra Howard Supervisor [employer] Storage: [facility] operating room technicians Anesthesia: General (ASA 2) Estimated blood loss (mL): 5 Tourniquet time (min): 48 Tourniquet time: At 250 mmHg IV fluids (mL): 700 Urine output (mL): 0 Urine output: No Galindo Complications: None Findings: Compression of the ulnar nerve at the level of the olecranon and slightly proximal. Discoloration of the ulnar nerve. Condition: stable Disposition: PACU (Then discharged to same days surgery to be discharged home with family) Brief History: This 40-year-old gentleman presented with complaints of severe pain, numbness, and tingling in the right ulnar nerve distribution within his hand. He had a very positive Tinel's test at the elbow, and he had electrodiagnostic studies demonstrating compression across the ulnar nerve at the level of the olecranon and slightly proximally. The patient was seen and evaluated in the clinic with his mother. Discussion was undertaken and plans were made for ulnar nerve release. Procedure: The patient was brought to the operating theater. The patient was administered a general anesthetic per LMA. Following this, the patient's right upper extremity was prepped and draped with DuraPrep. It was draped free and subsequently a sterile tourniquet was placed high on the arm. Following prepping and draping and prior to surgical incision, a surgical pause was performed. At the time of surgical pause, we confirmed the site and side of surgery as well as appropriate and timely administration of preoperative antibiotics. Following the surgical pause, the arm was exsanguinated using an Navi wrap. The tourniquet was elevated to 250 mmHg and total tourniquet time was 48 minutes. Following exsanguination and elevation of the tourniquet, landmarks were marked with a skin marker. We marked the medial epicondyle of the humerus as well as the tip of the olecranon. An incision was made at the point about midway between the two continuing for a total distance of approximately 4 cm. The dissection was continued through skin and soft tissues carefully. We also incised the flexor aponeurosis over the ulnar nerve taking care to isolate the ulnar nerve and avoid injury to it. The aponeurotic band over the nerve was divided and the nerve was traced distally between the two heads of the flexor carpi ulnaris muscle. Care was taken to protect neurovascular structures as well as any branches of the nerve. The fasciotomy of the flexor carpi ulnaris was accomplished to a point where I could pass my finger along the nerve and not feel any area which compressed my small finger. The ulnar nerve was left lying in its bed and it was also evaluated proximally to assure there were no further bands of compression. Gently I was able to extend the release proximally as well to assure that once again I could pass a small finger without any obvious areas which compressed across the ulnar nerve. In this fashion, we had completed the release of the entire cubital tunnel without injury to the nerve. Hemostasis was obtained using cautery. The nerve was noted to be purplish in this area. Once we had completely released proximally and distally and were able to palpate and directly visualize the nerve, attention was directed to closure. An intraneural lysis did not appear to be necessary. We then passively extended and flexed the elbow to assure that the nerve remained in its cubital area. Subluxation of the nerve did not occur and therefore attention was directed to closure. Skin closure was the only closure accomplished in addition to the subcutaneous tissues. We closed the subcutaneous tissues with [3-0 Monocryl] and subsequently closed the skin with a subcuticular 4-0 Monocryl. Patient was then placed in a large soft dressing consisting of Xeroform gauze, 4 x 4's, ABDs, sterile soft roll, a posterior splint and an Navi wrap. In the Recovery Room, the patient was neurologically intact. There were no complications. There were no specimens. The procedure was well tolerated. Patient will be discharged home to follow-up with me in the office. Associated Problem List Diagnoses (1) Entrapment of right ulnar nerve at elbow:
[2021-08-24] MEDS: HYDROcodone-acetaminophen 5-325 mg Tablet 1 TAB PO (13:48)
--- NOTE | 2021-08-24 15:12 | ANE.PACU2 ---
Inpatient post-anesthesia follow up: Airway intact: Yes Vital signs: Temperature 97.9 F Pulse Rate 62 Respiratory Rate 15 Blood Pressure 160/100 Pulse Oximetry 95 Oxygen Delivery Me thod Room Air Oxygen Flow Rate 4 Fraction of Inspir ed Oxygen Hydration adequate: Yes Nausea and vomiting: No Pain level: 1 Mental status: Baseline
== END 2021-08-24 14:35 | disposition home or self-care (01) ==
PROVIDERS: PCP Family Medicine; Visit Provider Specialist
PROC: (CPT 64718; principal; 2021-08-24 10:20)
DX: G56.21 Lesion of ulnar nerve, right upper limb (principal); F17.210 Nicotine dependence, cigarettes, uncomplicated
CPT/HCPCS: 64718; 36415; 80053; 85025; 96365; J0690; J2704; J3010; J7030

== ENCOUNTER → 2021-08-29 13:07 | Outpatient (BNVA) | payer MEDICARE, MEDICAID, SELFPAY | PROVIDERS: PCP Family Medicine; Visit Provider Psychiatry & Neurology Psychiatry | DX: F20.89 Other schizophrenia (principal); F41.1 Generalized anxiety disorder; F33.42 Major depressive disorder, recurrent, in full remission; F17.210 Nicotine dependence, cigarettes, uncomplicated | CPT/HCPCS: 99214 ==

== ENCOUNTER → 2021-10-17 13:13 | Outpatient (BNVA) | payer MEDICARE, MEDICAID, SELFPAY | PROVIDERS: PCP Family Medicine; Visit Provider Specialist | DX: G56.21 Lesion of ulnar nerve, right upper limb (principal) | CPT/HCPCS: 73080; 85007; 85027 ==

== ENCOUNTER → 2021-10-25 13:01 | Outpatient (BNVA) | payer MEDICARE, MEDICAID, SELFPAY | PROVIDERS: PCP Family Medicine; Visit Provider Psychiatry & Neurology Psychiatry | DX: F20.89 Other schizophrenia (principal); F33.42 Major depressive disorder, recurrent, in full remission; F17.210 Nicotine dependence, cigarettes, uncomplicated; F41.1 Generalized anxiety disorder; Z79.899 Other long term (current) drug therapy | CPT/HCPCS: 99214 ==

== ENCOUNTER 2021-11-07 10:12 | Emergency (ER) | payer MEDICARE, MEDICAID, SELFPAY ==
[2021-11-07 10:17] VITALS: BP 147/105; PULSE 73; RESP 18; TEMP 36.4; O2SAT 99; BMI 25.1
--- NOTE | 2021-11-07 10:25 | XR_ITS ---
WS: [id number] Exam: XR hip RT 2-3V wo/w pel* [id number] Date/Time of Exam: 11/07/2021 10:25 AM Reason For Exam: hip pain, denies injury Findings: No fractures or bone anomalies are noted. No unusual soft tissue masses or calcifications are seen. The bony elements of the hip are in adequate alignment. XR/XR hip RT 2-3V wo/w pel* [id number] IMPRESSION: Negative right hip. Tonnis classification: 0
--- NOTE | 2021-11-07 10:55 | W.ED.EXTPRO ---
HPI - Extremity Problem General: Chief complaint: Extremity Injury, Lower Stated complaint: Rt hip pain Time Seen by Provider: 11/07/21 10:26 History of Present Illness: Patient is a 41-year-old male comes to the ED with right hip pain. Patient denies any fall, trauma or injury to cause acute pain. Pain started yesterday. he described as a sharp and achy pain that he rates a 7 out of 10. Pain stays in the right hip and does not radiate down the leg. He took some Aleve this morning before coming to the ED. 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 Denies bladder or bowel incontinence, pelvic anesthesia or any weakness to lower extremities. Associated symptoms: Deny chest pain, fever(s) or rash Review of Systems Const: Denies: fever(s), chills or fatigue Eyes: Denies: change in vision or eye discomfort ENMT: Denies: throat pain, odynophagia, nasal discharge or nasal congestion Card: Denies: chest pain, palpitations, edema, swelling of feet/ankles, dyspnea on exertion or orthopnea Resp: Denies: dyspnea, productive cough or non-productive cough GI: Denies: abdominal pain, nausea, vomiting, diarrhea, constipation or hematochezia : Denies: flank pain, difficulty urinating, dysuria or hematuria Musc: Reports: extremity pain (right hip pain); Denies: neck pain, back pain or extremity swelling Skin/Breast: Denies: rash or new lesions Neuro: Denies: headache(s), numbness in extremities or weakness in extremities [facility] PFSH: Medical History Cigarette smoker Major depression, recurrent, full remission Other schizophrenia Other stimulant dependence, in remission Psychiatric care Social History Quit status (tobacco): considering quitting Second hand smoke exposure: Yes Physical Exam Const: COMMON NORMALS: no acute distress, patient oriented x3, healthy appearing and alert GENERAL APPEARANCE: cooperative and comfortable HENMT: COMMON NORMALS: normocephalic HEAD & SCALP: normocephalic MOUTH: Normal oral and palatal mucosa present THROAT: posterior oropharynx normal and uvula midline Neck/C-Spine: COMMON NORMALS: supple GENERAL: Yes normal visual inspection Resp: COMMON NORMALS: normal respiratory effort, No retractions, No use of accessory muscles and clear to auscultation bilaterally AUSCULTATION: clear to auscultation bilaterally Cardio: COMMON NORMALS: regular rate, regular rhythm, S1 normal heart sound present, S2 normal heart sound present, No gallops present (Cardio), No clicks present (Cardio), No murmurs present (Cardio) and Peripheral pulses 2+ throughout RATE: regular rate RHYTHM: regular rhythm HEART SOUNDS: S1 normal heart sound present and S2 normal heart sound present PERIPHERAL PULSES: Peripheral pulses 2+ throughout GI: COMMON NORMALS: Normal to inspection, nondistended, normoactive bowel sounds present, Soft to palpation, non-tender and no masses PALPATION: Yes Soft to palpation : COMMON NORMALS: Yes no CVA tenderness BLADDER/KIDNEY EXAM: Yes no CVA tenderness Back/Pelvis: COMMON NORMALS: no CVA tenderness Extremity: COMMON NORMALS: normal to inspection Neuro: COMMON NORMALS: patient oriented x3 and moves all extremities SENSORIUM/ORIENTATION: Yes alert Skin: GENERAL SKIN EXAM: dry skin Course Vital Signs: Vital signs: Vital Signs Temperature 97.5 F L 11/07/21 10:17 Pulse Rate 75 11/07/21 11:26 Respiratory Rate 16 11/07/21 11:26 Blood Pressure 138/99 11/07/21 11:26 Pulse Oximetry 98 11/07/21 11:26 MDM - Extremity (Nontraumatic) Medical Decision Making patient is a 41-year-old male who comes to the ED with right hip pain. He denies any trauma or injury to cause pain. Patient does have a very manual labor intensive job. Vitals are stable. Exam is benign. X-ray of right hip showed no acute findings or fractures. He was given a dose of Toradol and Norflex while here in the ED. Patient diagnosed with right hip pain and was discharged home with a prescription for Celebrex and Flexeril. He was told to follow-up with his PCP in 5 to 7 days for reevaluation. Return to ED precautions given. Patient understood and agreed with plan. Lab Data Radiology Impressions Hip/Pelvis X-Ray 11/07/21 10:25 IMPRESSION: Negative right hip. Tonnis classification: 0 Discharge Plan Discharge Patient Disposition: Home Clinical Impression: Hip pain, right Condition: Stable Prescriptions: New cyclobenzaprine 7.5 mg tablet 7.5 mg PO BID PRN (Reason: muscle spasm and pain) Qty: 20 0RF Celebrex 100 mg capsule 100 mg PO BID PRN (Reason: pain) Qty: 20 0RF No Action atropine 1 % drops 3 drp sublingual BID Qty: 15 11RF citalopram [Celexa] 20 mg tablet 20 mg PO DAILY Qty: 30 11RF diazepam 5 mg tablet 5 mg PO TID Qty: 90 5RF clozapine 200 mg tablet 200 mg PO .qhs Qty: 30 11RF Rx Instructions: Take with 100mg dose for total daily dose of 300mg. naproxen 500 mg tablet See Rx Instructions .ROUTE .COMPLEX Qty: 60 0RF Dose Instruction: Take 1 tablet by mouth twice daily Rx Instructions: Take 1 tablet by mouth twice daily clozapine 100 mg tablet 100 mg PO QAM 0RF Rx Instructions: Take with nightly dose of 200mg for total nightly dose of 300mg. propranolol 40 mg tablet 20 mg PO TID 0RF amlodipine 5 mg tablet 5 mg PO DAILY 0RF Discharge Orders: Discharge ED (Routine); Ordered 11/07/21 Ordered By: Luther Wilcox Referrals: Gumaro Prater MD [Primary Care Provider] - Discharge Diet: Regular Discharge Activity: Increase activity as tolerated Patient Instructions: Hip Bursitis (ED), Hip Pain (ED) Activity Restrictions/Additional Instructions: Follow-up with medical provider as directed in the next 7 to 10 days for reevaluation. Rest, ice and elevate right leg to help with symptoms. Take medications as prescribed. Return to the ER or your medical provider if condition worsens. Please read and understand discharge instructions. Thank you for choosing [facility] for your healthcare needs today. Please realize this is an emergency room and that we are providing you with a medical screening exam and this may not be complete and all inclusive of all the testing and or work up that you may need to determine your ailment or severity of your illness. It is very important that you follow up as instructed or that you return to the Emergency Department should you have concerns or if your condition changes or worsens in any way. Stand Alone Forms: Work/School Release Coding Level of Care Code ED Freelance Programmer/App Developer for Lisa Fwd Exam Comprehensive
[2021-11-07 11:02] VITALS: BP 147/105; PULSE 73; RESP 18; O2SAT 99
[2021-11-07] MEDS: ketorolac 60 mg/2 mL INJ IM (11:04)
[2021-11-07] MEDS: orphenadrine 30 mg/mL Inj 2 mL 60 MG IM (11:05)
[2021-11-07 11:26] VITALS: BP 138/99; PULSE 75; RESP 16; O2SAT 98
== END 2021-11-07 11:27 | disposition home or self-care (01) ==
PROVIDERS: Emergency Provider Physician Assistant; PCP Family Medicine
DX: M25.551 Pain in right hip (principal); F17.210 Nicotine dependence, cigarettes, uncomplicated
CPT/HCPCS: 73502; 96372; 99283; E0114; J1885; J2360

== ENCOUNTER → 2021-11-30 10:24 | Outpatient (BNVA) | payer MEDICARE, MEDICAID, SELFPAY | PROVIDERS: PCP Family Medicine; Visit Provider Psychiatry & Neurology Psychiatry | DX: F20.89 Other schizophrenia (principal); Z79.899 Other long term (current) drug therapy | CPT/HCPCS: 80061; 83036; 85007; 85027 ==

== ENCOUNTER → 2021-12-26 13:42 | Outpatient (BNVA) | payer MEDICARE, MEDICAID, SELFPAY | PROVIDERS: PCP Family Medicine; Visit Provider Psychiatry & Neurology Psychiatry | DX: F20.89 Other schizophrenia (principal); F33.42 Major depressive disorder, recurrent, in full remission; F41.1 Generalized anxiety disorder; F17.210 Nicotine dependence, cigarettes, uncomplicated; K11.7 Disturbances of salivary secretion; Z79.899 Other long term (current) drug therapy | CPT/HCPCS: 80159; 85007; 85027; 99215 ==

== ENCOUNTER → 2022-01-09 13:05 | Outpatient (BNVA) | payer MEDICARE, MEDICAID, SELFPAY | PROVIDERS: PCP Family Medicine; Visit Provider Psychiatry & Neurology Psychiatry | DX: F20.89 Other schizophrenia (principal); F33.42 Major depressive disorder, recurrent, in full remission; F17.210 Nicotine dependence, cigarettes, uncomplicated; G25.71 Drug induced akathisia; F41.1 Generalized anxiety disorder; Z79.899 Other long term (current) drug therapy | CPT/HCPCS: 99214 ==

== ENCOUNTER → 2022-01-29 14:21 | Outpatient (BNVA) | payer MEDICARE, MEDICAID, SELFPAY | PROVIDERS: PCP Family Medicine; Visit Provider Psychiatry & Neurology Psychiatry | DX: F20.89 Other schizophrenia (principal); Z79.899 Other long term (current) drug therapy | CPT/HCPCS: 85007; 85027 ==

== ENCOUNTER → 2022-02-14 13:30 | Outpatient (BNVA) | payer MEDICARE, MEDICAID, SELFPAY | PROVIDERS: PCP Family Medicine; Visit Provider Psychiatry & Neurology Psychiatry | DX: F20.89 Other schizophrenia (principal); Z79.899 Other long term (current) drug therapy | CPT/HCPCS: 80159; 85007; 85027 ==

== ENCOUNTER → 2022-04-16 10:10 | Outpatient (BNVA) | payer MEDICARE, OTHER, SELFPAY | PROVIDERS: PCP Family Medicine; Visit Provider Psychiatry & Neurology Psychiatry | DX: F20.89 Other schizophrenia (principal); Z79.899 Other long term (current) drug therapy | CPT/HCPCS: 85007; 85027 ==

== ENCOUNTER → 2022-06-21 10:16 | Outpatient (BNVA) | payer MEDICARE, MEDICAID, OTHER, SELFPAY | PROVIDERS: PCP Family Medicine; Visit Provider Psychiatry & Neurology Psychiatry | DX: F20.89 Other schizophrenia (principal); Z79.899 Other long term (current) drug therapy | CPT/HCPCS: 85007; 85027 ==

== ENCOUNTER 2022-07-19 16:41 | Emergency (ER) | payer MEDICARE, MEDICAID, SELFPAY ==
--- NOTE | 2022-07-19 17:13 | W.ED.URI ---
HPI - URI/Sore Throat General: Chief Complaint: COVID symptoms Stated Complaint: cough congestion Time Seen by Provider: 07/19/22 17:12 History of Present Illness: 41-year-old male patient comes in today with complaints of chest discomfort and cough with illness x7 days. Patient did have a positive home COVID-19 test. Patient's family was all sick with COVID last week. Patient continues to be ill and feels he has pneumonia. Patient has some psychiatric illness but otherwise denies any chronic medical problems. Associated symptoms: Deny fever(s) Review of Systems Const: Denies: fever(s) Resp: Reports: dyspnea and non-productive cough PFSH ED PFSH: Medical History Cigarette smoker Major depression, recurrent, full remission Other schizophrenia Other stimulant dependence, in remission Psychiatric care Social History Smoking and tobacco status: current every day smoker cigarettes Packs smoked per day: 0.5 Years cigarettes smoked: 30 Quit status (tobacco): considering quitting Second hand smoke exposure: Yes Smoking risk assessment/counseling performed?: No Alcohol intake: current Alcohol intake frequency: holidays/special occasions only Alcohol type: beer and hard liquor Desire information about alcohol rehabilitation?: No Counseling given: No Desire information about substance/drug rehabilitation?: No Counseling given: No Physical Exam Const: COMMON NORMALS: alert HENMT: COMMON NORMALS: atraumatic HEAD & SCALP: atraumatic Neck/C-Spine: COMMON NORMALS: full ROM Resp: COMMON NORMALS: normal respiratory effort AUSCULTATION: crackles (Bilateral posteriorly) Cardio: COMMON NORMALS: regular rate and regular rhythm RATE: regular rate RHYTHM: regular rhythm Extremity: COMMON NORMALS: no pedal edema Neuro: SENSORIUM/ORIENTATION: Yes alert Skin: COMMON NORMALS: turgor normal GENERAL SKIN EXAM: turgor normal Course Vital Signs: Vital signs: Vital Signs Temperature 99.0 F 07/19/22 17:16 Pulse Rate 80 07/19/22 18:39 Respiratory Rate 18 07/19/22 18:39 Blood Pressure 130/91 07/19/22 18:37 Pulse Oximetry 94 07/19/22 18:39 Oxygen Delivery Me thod 07/19/22 18:39 MDM - URI/Sore Throat Medical Decision Making 41-year-old male patient comes in today for complaints of cough and chest congestion. On exam patient has posterior crackles on bases of the lungs. Vital signs are normal. Differential diagnosis includes pneumonia, COVID-19, bronchitis, asthma. Chest x-ray notes some bibasilar atelectasis versus infiltrates. Believe the patient probably has bibasilar pneumonia secondary to COVID-19. We will go ahead and give patient a dose of dexamethasone and started on albuterol inhaler. Patient will be covered with doxycycline for further treatment for secondary bacterial infection. Patient and family both report understanding and need for follow-up or return for worsening symptoms. Lab Data Radiology Impressions Chest X-Ray 07/19/22 17:29 IMPRESSION: Bibasilar atelectasis versus minimal infiltrate. Discharge Plan Discharge Patient Disposition: Home Clinical Impression: Pneumonia Qualifiers: Pneumonia type: due to unspecified organism Laterality: bilateral Lung location: lower lobe of lung Qualified Code(s): J18.9 - Pneumonia, unspecified organism Condition: Stable Prescriptions: New doxycycline monohydrate 100 mg capsule 100 mg PO BID 7 Days Qty: 14 0RF albuterol sulfate 90 mcg/actuation HFA aerosol inhaler 2 inh inhalation Q4H PRN (Reason: shortness of breath or wheezing) Qty: 8.5 0RF dexamethasone 4 mg tablet 4 mg PO DAILY Qty: 7 0RF No Action clonidine HCl 0.2 mg tablet 0.2 mg PO .qhs Qty: 30 11RF clozapine 50 mg tablet 50 mg PO QAM Qty: 30 11RF citalopram [Celexa] 20 mg tablet 20 mg PO DAILY Qty: 30 11RF diazepam 5 mg tablet 5 mg PO TID Qty: 90 5RF naproxen 500 mg tablet See Rx Instructions .ROUTE .COMPLEX Qty: 60 0RF Dose Instruction: Take 1 tablet by mouth twice daily Rx Instructions: Take 1 tablet by mouth twice daily propranolol 40 mg tablet 40 mg PO TID Qty: 90 11RF clozapine 100 mg tablet 150 mg PO .qhs Qty: 45 11RF amlodipine 5 mg tablet 5 mg PO DAILY Discharge Orders: Discharge ED (Routine); Ordered 07/19/22 Ordered By: Alberto Brown Referrals: Gumaro Prater MD [Primary Care Provider] - Discharge Diet: Usual diet Discharge Activity: Increase activity as tolerated Patient Instructions: Pneumonia (ED) Activity Restrictions/Additional Instructions: Drink plenty of fluids. Take doxycycline 100 mg 1 tablet 2 times a day for 7 days for your antibiotic. Use albuterol inhaler 2 puffs every 4 hours as needed for cough, wheezing, or shortness of breath. Try to use this routinely 4 times a day until you start feeling better. Take dexamethasone 4 mg 1 tablet daily for the next 7 days for inflammation and improvement in respiratory status. Follow-up with primary care in 3 days for recheck. Return to ER for worsening symptoms such as increased shortness of breath, severe chest pain, or new concerns. Coding Level of Care Code ED Quality Control Supervisor for Lisa Coppola
[2022-07-19 17:16] VITALS: BP 119/74; PULSE 76; RESP 16; TEMP 37.2; O2SAT 91; BMI 28.8
--- NOTE | 2022-07-19 17:29 | XRR_ITS ---
PROCEDURE INFORMATION: Exam: XR Chest Exam date and time: 07/19/2022 5:35 PM Age: 41 years old Clinical indication: Cough; Additional info: Cough, congestion TECHNIQUE: Imaging protocol: Radiologic exam of the chest. Views: 1 view. COMPARISON: CT cervical spin wo con* [id number] 01/12/2018 6:00 PM FINDINGS: Lungs: Bibasilar atelectasis versus minimal infiltrate. Pleural spaces: Unremarkable. No pleural effusion. No pneumothorax. Heart/Mediastinum: Unremarkable. No cardiomegaly. Bones/joints: Unremarkable. XR/XR chest 1V portable [id number] IMPRESSION: Bibasilar atelectasis versus minimal infiltrate.
[2022-07-19 17:48] VITALS: O2SAT 95
[2022-07-19] MEDS: dexamethasone 10 mg/mL INJ IM (18:33)
[2022-07-19] MEDS: doxycycline 100 mg Tablet PO (18:33)
[2022-07-19 18:37] VITALS: BP 130/91; PULSE 79; RESP 18; O2SAT 93
[2022-07-19] MEDS: albuterol 8 gm MDI 2 PUFF INHALATION (18:38)
[2022-07-19 18:39] VITALS: PULSE 80; RESP 18; O2SAT 94
[2022-07-19 20:20] LABS: Adenovirus Not Detected (NOT DETECT); Chlamydia Pneumoniae Not Detected (NOT DETECT); Coronavirus 229E,HKU1,NL63,OC4 Not Detected (NOT DETECT); Human Metapneumovirus Not Detected (NOT DETECT); Human Rhinovirus/Enterovirus Not Detected (NOT DETECT); Influenza A Not Detected (NOT DETECT); Influenza A H1 Not Detected (NOT DETECT); Influenza A H1-2009 Not Detected (NOT DETECT); Influenza A H3 Not Detected (NOT DETECT); Influenza B Not Detected (NOT DETECT); Mycoplasma Pneumoniae Not Detected (NOT DETECT); Parainfluenza Virus Type 1 Not Detected (NOT DETECT); Parainfluenza Virus Type 2 Not Detected (NOT DETECT); Parainfluenza Virus Type 3 Not Detected (NOT DETECT); Parainfluenza Virus Type 4 Not Detected (NOT DETECT); Respiratory Syncytial Virus A Not Detected (NOT DETECT); Respiratory Syncytial Virus B Not Detected (NOT DETECT); SARS-COV-2 Detected (NOT DETECT)
== END 2022-07-19 18:45 | disposition home or self-care (01) ==
PROVIDERS: Emergency Provider Nurse Practitioner Family; PCP Family Medicine
DX: U07.1 COVID-19 (principal); J12.82 Pneumonia due to coronavirus disease 2019; F17.210 Nicotine dependence, cigarettes, uncomplicated
CPT/HCPCS: 71045; 87635; 94640; 96372; 99284; J1100; J3535

== ENCOUNTER → 2022-08-01 10:21 | Outpatient (BNVA) | payer MEDICARE, MEDICAID, OTHER, SELFPAY | PROVIDERS: PCP Family Medicine; Visit Provider Psychiatry & Neurology Psychiatry | DX: F20.89 Other schizophrenia (principal); Z79.899 Other long term (current) drug therapy | CPT/HCPCS: 85007; 85027 ==

== ENCOUNTER → 2022-08-27 12:19 | Outpatient (BNVA) | payer MEDICARE, MEDICAID, SELFPAY | PROVIDERS: PCP Family Medicine; Visit Provider Psychiatry & Neurology Psychiatry | DX: F20.89 Other schizophrenia (principal); Z79.899 Other long term (current) drug therapy | CPT/HCPCS: 85007; 85027 ==

== ENCOUNTER → 2022-09-26 14:40 | Outpatient (BNVA) | payer MEDICARE, MEDICAID, OTHER, SELFPAY | PROVIDERS: PCP Family Medicine; Visit Provider Psychiatry & Neurology Psychiatry | DX: F20.89 Other schizophrenia (principal); Z79.899 Other long term (current) drug therapy | CPT/HCPCS: 85007; 85027 ==

== ENCOUNTER → 2022-10-24 11:38 | Outpatient (BNVA) | payer MEDICARE, MEDICAID, OTHER, SELFPAY | PROVIDERS: PCP Family Medicine; Visit Provider Psychiatry & Neurology Psychiatry | DX: F20.89 Other schizophrenia (principal); Z79.899 Other long term (current) drug therapy; F33.42 Major depressive disorder, recurrent, in full remission; G25.71 Drug induced akathisia; F17.210 Nicotine dependence, cigarettes, uncomplicated; F41.1 Generalized anxiety disorder; K11.7 Disturbances of salivary secretion; T43.505A Adverse effect of unspecified antipsychotics and neuroleptics, initial encounter | CPT/HCPCS: 85007; 85027 ==

== ENCOUNTER 2022-11-26 06:00 | Outpatient (RCR) | payer MEDICARE, MEDICAID, SELFPAY | END 2022-12-08 23:59 | disposition home or self-care (01) | LOC: TPT 06:00 | PROVIDERS: Visit Provider Physician Assistant | DX: M54.50 Low back pain, unspecified (principal); G89.29 Other chronic pain | CPT/HCPCS: 97110; 97162 ==

== ENCOUNTER 2022-12-09 06:00 | Outpatient (RCR) | payer MEDICARE, MEDICAID, SELFPAY | END 2023-01-08 23:59 | disposition home or self-care (01) | LOC: TPT 06:00 | PROVIDERS: Visit Provider Physician Assistant | DX: M54.50 Low back pain, unspecified (principal); G89.29 Other chronic pain | CPT/HCPCS: 97110 ==

== ENCOUNTER → 2022-12-11 10:01 | Outpatient (BNVA) | payer MEDICARE, MEDICAID, OTHER, SELFPAY | PROVIDERS: Visit Provider Psychiatry & Neurology Psychiatry | DX: Z79.899 Other long term (current) drug therapy (principal) | CPT/HCPCS: 80061; 83036 ==

== ENCOUNTER → 2022-12-25 15:43 | Outpatient (BNVA) | payer MEDICARE, MEDICAID, OTHER, SELFPAY | PROVIDERS: Visit Provider Psychiatry & Neurology Psychiatry | DX: F20.9 Schizophrenia, unspecified (principal); Z79.899 Other long term (current) drug therapy | CPT/HCPCS: 85007; 85027 ==

== ENCOUNTER 2023-01-09 06:00 | Outpatient (RCR) | payer MEDICARE, MEDICAID, SELFPAY | END 2023-02-07 23:59 | disposition home or self-care (01) | LOC: TPT 06:00 | PROVIDERS: Visit Provider Physician Assistant | DX: M54.50 Low back pain, unspecified (principal); G89.29 Other chronic pain | CPT/HCPCS: 97110 ==

== ENCOUNTER 2023-02-08 06:00 | Outpatient (RCR) | payer MEDICARE, MEDICAID, SELFPAY | END 2023-02-19 23:59 | disposition home or self-care (01) | LOC: TPT 06:00 | PROVIDERS: Visit Provider Physician Assistant | DX: M54.50 Low back pain, unspecified (principal); G89.29 Other chronic pain | CPT/HCPCS: 97110 ==

== ENCOUNTER → 2023-02-19 10:18 | Outpatient (BNVA) | payer MEDICARE, MEDICAID, SELFPAY | PROVIDERS: Visit Provider Psychiatry & Neurology Psychiatry | DX: F20.9 Schizophrenia, unspecified (principal); Z79.899 Other long term (current) drug therapy | CPT/HCPCS: 85007; 85027 ==

== ENCOUNTER → 2023-03-21 11:24 | Outpatient (BNVA) | payer MEDICARE, OTHER, SELFPAY | PROVIDERS: Visit Provider Psychiatry & Neurology Psychiatry | DX: Z79.899 Other long term (current) drug therapy (principal) | CPT/HCPCS: 85007; 85027 ==

== ENCOUNTER → 2023-04-22 13:50 | Outpatient (BNVA) | payer MEDICARE, OTHER, SELFPAY | PROVIDERS: Visit Provider Psychiatry & Neurology Psychiatry | DX: F20.9 Schizophrenia, unspecified (principal) | CPT/HCPCS: 85007; 85027 ==

== ENCOUNTER → 2023-05-28 09:23 | Outpatient (BNVA) | payer MEDICARE, SELFPAY | PROVIDERS: Visit Provider Psychiatry & Neurology Psychiatry | DX: F20.9 Schizophrenia, unspecified (principal); Z79.899 Other long term (current) drug therapy | CPT/HCPCS: 85007; 85027 ==

== ENCOUNTER → 2023-07-31 10:50 | Outpatient (BNVA) | payer MEDICARE, SELFPAY | PROVIDERS: Visit Provider Psychiatry & Neurology Psychiatry | DX: F20.9 Schizophrenia, unspecified (principal); Z79.899 Other long term (current) drug therapy | CPT/HCPCS: 85007; 85027 ==

== ENCOUNTER → 2023-09-18 11:42 | Outpatient (BNVA) | payer MEDICARE, SELFPAY | PROVIDERS: Visit Provider Psychiatry & Neurology Psychiatry | DX: Z79.899 Other long term (current) drug therapy (principal); F20.89 Other schizophrenia | CPT/HCPCS: 85025 ==

== ENCOUNTER → 2023-10-29 14:16 | Outpatient (BNVA) | payer MEDICARE, OTHER, SELFPAY | PROVIDERS: Visit Provider Psychiatry & Neurology Psychiatry | DX: F20.89 Other schizophrenia (principal); Z79.899 Other long term (current) drug therapy | CPT/HCPCS: 85007; 85027 ==

== ENCOUNTER → 2023-11-27 10:58 | Outpatient (BNVA) | payer MEDICARE, OTHER, SELFPAY | PROVIDERS: Visit Provider Psychiatry & Neurology Psychiatry | DX: F20.89 Other schizophrenia (principal); Z79.899 Other long term (current) drug therapy; F33.40 Major depressive disorder, recurrent, in remission, unspecified | CPT/HCPCS: 80061; 83036; 85007; 85027 ==

== ENCOUNTER → 2024-01-29 14:01 | Outpatient (BNVA) | payer MEDICARE, OTHER, SELFPAY | PROVIDERS: Visit Provider Psychiatry & Neurology Psychiatry | DX: F20.89 Other schizophrenia (principal); Z79.899 Other long term (current) drug therapy | CPT/HCPCS: 85007; 85027 ==

== ENCOUNTER → 2024-02-05 12:46 | Outpatient (BNVA) | payer MEDICARE, OTHER, SELFPAY | PROVIDERS: Visit Provider Nurse Practitioner Family | DX: D48.5 Neoplasm of uncertain behavior of skin (principal); L57.0 Actinic keratosis; D22.4 Melanocytic nevi of scalp and neck; L57.8 Other skin changes due to chronic exposure to nonionizing radiation; L81.4 Other melanin hyperpigmentation | CPT/HCPCS: 11102; 17000; 99203 ==

== ENCOUNTER → 2024-03-15 10:04 | Outpatient (BNVA) | payer OTHER, MEDICAID, SELFPAY | PROVIDERS: Visit Provider Psychiatry & Neurology Psychiatry | DX: F20.89 Other schizophrenia (principal); Z79.899 Other long term (current) drug therapy | CPT/HCPCS: 85007; 85027 ==

== ENCOUNTER → 2024-05-14 11:35 | Outpatient (BNVA) | payer MEDICARE, OTHER, SELFPAY | PROVIDERS: Visit Provider Psychiatry & Neurology Psychiatry | DX: Z79.899 Other long term (current) drug therapy (principal); F20.89 Other schizophrenia | CPT/HCPCS: 85007; 85027 ==

== ENCOUNTER 2024-06-22 13:09 | Oncology outpatient (recurring) (ONCR) | payer OTHER, SELFPAY ==
[2024-06-22 13:37] LABS: Basophils % 0.2 %; Eosinophils # 0.1 10^3/uL (0.0-0.8); Eosinophils % 0.6 %; Hematocrit 44.6 % (37-53); Lymphocytes # 1.8 10^3/uL (0.8-4.8); Lymphocytes % 16.5 %; Mean Corpuscular HGB Conc 33.6 g/dL (30-55); Mean Corpuscular Hemoglobin 32.5 pg (27-33); Mean Corpuscular Volume 96.7 fl (82-101); Mean Platelet Volume 10.5 fL (7.4-10.4); Monocytes # 0.5 10^3/uL (0.2-0.9); Monocytes % 4.2 %; Neutrophils # 8.48 10^3/uL (1.8-7.7); Neutrophils % 78.1 %; Nucleated Red Blood Cells % 0 %; Platelet Count 49 10^3/cmm (157-399); Red Blood Count 4.61 10^6/uL (3.85-5.65); Red Cell Distribution Width 13.7 % (12.1-15.1); White Blood Count 10.85 10^3/uL (3.29-11.43)
[2024-06-22 13:54] LABS: Alanine Aminotransferase 49 U/L (0-41); Albumin Level 3.9 g/dL (3.5-5.2); Alkaline Phosphatase 75 U/L (40-130); Anion Gap 13.8 (5-19); Aspartate Amino Transferase 63 U/L (0-40); Blood Urea Nitrogen 5 mg/dL (6-20); Carbon Dioxide 28 mmol/L (22-29); Chloride 99 mmol/L (98-107); Creatinine Clr Calc Pharmacy 103.2771; Globulin 1.8 g/dL (1.3-4.6); Glomerular Filtration Rate 80.8 mL/min (90-130); Glucose 123 mg/dL (65-115); Lactate Dehydrogenase 148 U/L (135-225); Osmolality Calculated 283 mOsm/kg (285-295); Potassium 3.8 mmol/L (3.5-5.1); Sodium 137 mmol/L (136-145); Total Bilirubin 1.1 mg/dL (0.15-1.2); Total Protein 5.7 g/dL (6.6-8.7)
== END 2024-07-10 23:59 | disposition home or self-care (01) ==
PROVIDERS: PCP Family Medicine; Visit Provider Internal Medicine Hematology & Oncology
DX: D69.6 Thrombocytopenia, unspecified (principal)
CPT/HCPCS: 36415; 80053; 83010; 83615; 85025

== ENCOUNTER → 2024-07-02 16:07 | Outpatient (BNVA) | payer MEDICARE, SELFPAY | PROVIDERS: PCP Family Medicine; Visit Provider Psychiatry & Neurology Psychiatry | DX: Z79.899 Other long term (current) drug therapy (principal); F20.89 Other schizophrenia | CPT/HCPCS: 80159 ==

== ENCOUNTER 2024-07-27 12:13 | Outpatient (CLI) | payer MEDICARE, MEDICAID, SELFPAY ==
[2024-07-27 13:51] LABS: HIV 1 & 2 Antibody Non-Reactive (Non-Reactiv); HIV 1 & 2 Antigen Non-Reactive (Non-Reactiv)
== END 2024-07-27 12:14 | disposition home or self-care (01) ==
LOC: LAB 12:15
PROVIDERS: PCP Family Medicine; Visit Provider Student in an Organized Health Care Education/Training Program
DX: B19.20 Unspecified viral hepatitis C without hepatic coma (principal); Z11.3 Encounter for screening for infections with a predominantly sexual mode of transmission
CPT/HCPCS: 36415; 81596; 86592; 87806; 87902; 99205

== ENCOUNTER 2024-08-06 11:47 | Oncology outpatient (recurring) (ONCR) | payer MEDICARE, MEDICAID, SELFPAY ==
[2024-07-13 14:35] LABS: Basophils % 0.4 %; Eosinophils # 0.2 10^3/uL (0.0-0.8); Eosinophils % 1.4 %; Hematocrit 46.3 % (37-53); Lymphocytes # 2.1 10^3/uL (0.8-4.8); Lymphocytes % 20.1 %; Mean Corpuscular HGB Conc 33.7 g/dL (30-55); Mean Corpuscular Hemoglobin 32.8 pg (27-33); Mean Corpuscular Volume 97.5 fl (82-101); Mean Platelet Volume 10.5 fL (7.4-10.4); Monocytes # 0.5 10^3/uL (0.2-0.9); Monocytes % 5.2 %; Neutrophils # 7.55 10^3/uL (1.8-7.7); Neutrophils % 72.6 %; Nucleated Red Blood Cells % 0 %; Platelet Count 59 10^3/cmm (157-399); Red Blood Count 4.75 10^6/uL (3.85-5.65); Red Cell Distribution Width 13.8 % (12.1-15.1)
[2024-07-13 15:00] LABS: Alanine Aminotransferase 67 U/L (0-41); Albumin Level 4.1 g/dL (3.5-5.2); Alkaline Phosphatase 76 U/L (40-130); Aspartate Amino Transferase 74 U/L (0-40); Blood Urea Nitrogen 7 mg/dL (6-20); Calcium 9.2 mg/dL (8.5-10.5); Carbon Dioxide 32 mmol/L (22-29); Chloride 105 mmol/L (98-107); Creatinine Clr Calc Pharmacy 116.0824; Globulin 2.6 g/dL (1.3-4.6); Glomerular Filtration Rate 91.3 mL/min (90-130); Glucose 77 mg/dL (65-115); Lactate Dehydrogenase 129 U/L (135-225); Osmolality Calculated 287 mOsm/kg (285-295); Sodium 140 mmol/L (136-145); Total Bilirubin 1.3 mg/dL (0.15-1.2); Total Protein 6.7 g/dL (6.6-8.7)
[2024-07-13 15:17] LABS: Hepatitis A Antibody IgM Non-Reactive (Nonreactive); Hepatitis B Core AB, Total Non-Reactive (Nonreactive); Hepatitis B Surface AB < 3.5 (11.5-1000); Hepatitis B Surface Antigen Non-Reactive (Nonreactive); Hepatitis C Virus Antibody Reactive (Nonreactive)
[2024-07-14 15:30] LABS: HEP C RNA Viral Load Quant 1750000 IU/mL (NOT DETECTED); HEP C RNA Viral Load Quant 6.24 Log IU/mL (NOT DETECTED)
--- NOTE | 2024-08-06 11:45 | US_ITS ---
WS: [id number] RIGHT UPPER QUADRANT ULTRASOUND HISTORY: hep c COMPARISON: 12/22/2020 Liver: 17.3 cm in length. Normal size liver and echogenicity. No bile duct dilatation or mass. Portal Vein: Normal hepatopetal flow with monophasic waveform. Gallbladder: Normally distended gallbladder with no stones or wall thickening. CBD: 0.4 cm Pancreas: Completely obscured by bowel gas. Right kidney: 12.4 cm in length. No hydronephrosis. Nonobstructing renal calcification mid kidney wit h maximal diameter of 0.7 cm. 3 renal cysts. The largest in the lower pole measures 2.4 x 2.3 x 2.1 c m. No solid mass. Aorta and IVC: Unremarkable abdominal aorta and IVC. No ascites. US/US liver [id number] IMPRESSION: 1. Normal gallbladder. 2. Unremarkable liver. No mass or intrahepatic dilatation. 3. RIGHT renal cysts x3.
== END 2024-08-10 23:59 | disposition home or self-care (01) ==
LOC: RAD 11:47 → ONCMED 08-09 09:19
PROVIDERS: Internal Medicine Hematology & Oncology; Nurse Practitioner; PCP Family Medicine; Visit Provider Student in an Organized Health Care Education/Training Program
DX: B19.20 Unspecified viral hepatitis C without hepatic coma (principal); Q61.02 Congenital multiple renal cysts
CPT/HCPCS: 36415; 76705; 80053; 83010; 83615; 85025; 86705; 86706; 86709; 86803; 87340; 87522

== ENCOUNTER → 2024-09-10 12:04 | Outpatient (BNVA) | payer MEDICARE, MEDICAID, SELFPAY | PROVIDERS: PCP Family Medicine; Visit Provider Psychiatry & Neurology Psychiatry | DX: F20.89 Other schizophrenia (principal); Z79.899 Other long term (current) drug therapy | CPT/HCPCS: 85007; 85027 ==

== ENCOUNTER 2024-09-13 13:56 | Oncology outpatient (recurring) (ONCR) | payer MEDICARE, MEDICAID, SELFPAY | END 2024-09-13 23:59 | disposition home or self-care (01) | PROVIDERS: PCP Family Medicine; Visit Provider Student in an Organized Health Care Education/Training Program | DX: D69.6 Thrombocytopenia, unspecified (principal); B19.20 Unspecified viral hepatitis C without hepatic coma; F17.210 Nicotine dependence, cigarettes, uncomplicated; Z79.899 Other long term (current) drug therapy | CPT/HCPCS: 99214 ==

== ENCOUNTER → 2024-11-10 13:32 | Outpatient (BNVA) | payer MEDICARE, OTHER, SELFPAY | PROVIDERS: PCP Family Medicine; Visit Provider Psychiatry & Neurology Psychiatry | DX: F20.89 Other schizophrenia (principal); Z79.899 Other long term (current) drug therapy | CPT/HCPCS: 85007; 85027 ==

== ENCOUNTER 2024-12-13 13:04 | Oncology outpatient (recurring) (ONCR) | payer OTHER, MEDICAID, SELFPAY ==
[2024-12-13 13:45] LABS: Basophils # 0.1 10^3/uL (0.0-0.1); Basophils % 0.4 %; Eosinophils # 0.2 10^3/uL (0.0-0.8); Eosinophils % 1.4 %; Hematocrit 46.5 % (37-53); Lymphocytes # 2.5 10^3/uL (0.8-4.8); Lymphocytes % 21.1 %; Mean Corpuscular HGB Conc 34.4 g/dL (30-55); Mean Corpuscular Hemoglobin 32.9 pg (27-33); Mean Corpuscular Volume 95.7 fl (82-101); Monocytes # 0.6 10^3/uL (0.2-0.9); Monocytes % 4.9 %; Neutrophils # 8.46 10^3/uL (1.8-7.7); Neutrophils % 71.9 %; Nucleated Red Blood Cells % 0 %; Platelet Count 64 10^3/cmm (157-399); Red Blood Count 4.86 10^6/uL (3.85-5.65); Red Cell Distribution Width 13.7 % (12.1-15.1); White Blood Count 11.77 10^3/uL (3.29-11.43)
[2024-12-13 13:58] LABS: Alanine Aminotransferase 12 U/L (0-41); Albumin Level 4.1 g/dL (3.5-5.2); Alkaline Phosphatase 69 U/L (40-130); Anion Gap 14.2 (5-19); Aspartate Amino Transferase 23 U/L (0-40); Blood Urea Nitrogen 7 mg/dL (6-20); Calcium 9.3 mg/dL (8.5-10.5); Carbon Dioxide 27 mmol/L (22-29); Chloride 102 mmol/L (98-107); Creatinine Clr Calc Pharmacy 118.2816; Globulin 2.6 g/dL (1.3-4.6); Glomerular Filtration Rate 90.8 mL/min (90-130); Glucose 93 mg/dL (65-115); Osmolality Calculated 286 mOsm/kg (285-295); Potassium 4.2 mmol/L (3.5-5.1); Sodium 139 mmol/L (136-145); Total Bilirubin 1.1 mg/dL (0.15-1.2); Total Protein 6.7 g/dL (6.6-8.7)
== END 2025-01-08 23:59 | disposition home or self-care (01) ==
PROVIDERS: Internal Medicine Medical Oncology; PCP Family Medicine; Visit Provider Student in an Organized Health Care Education/Training Program
DX: B19.20 Unspecified viral hepatitis C without hepatic coma (principal); D69.6 Thrombocytopenia, unspecified; F17.210 Nicotine dependence, cigarettes, uncomplicated; Z79.899 Other long term (current) drug therapy
CPT/HCPCS: 36415; 80053; 85025; 99214

== ENCOUNTER → 2024-12-29 09:02 | Outpatient (BNVA) | payer OTHER, MEDICAID, SELFPAY | PROVIDERS: PCP Family Medicine; Visit Provider Psychiatry & Neurology Psychiatry | DX: F20.89 Other schizophrenia (principal); Z79.899 Other long term (current) drug therapy | CPT/HCPCS: 85007; 85027 ==

== ENCOUNTER → 2025-01-11 10:16 | Outpatient (BNVA) | payer MEDICARE, MEDICAID, SELFPAY | PROVIDERS: PCP Family Medicine; Visit Provider Student in an Organized Health Care Education/Training Program | DX: B19.20 Unspecified viral hepatitis C without hepatic coma (principal); Z11.3 Encounter for screening for infections with a predominantly sexual mode of transmission | CPT/HCPCS: 36415; 80053; 82595; 85025; 87522; 99215 ==

== ENCOUNTER 2025-01-20 08:27 | Oncology outpatient (recurring) (ONCR) | payer MEDICARE, MEDICAID, SELFPAY ==
--- NOTE | 2025-01-20 08:30 | US_ITS ---
WS: [id number] Gallbladder and right upper quadrant ultrasound, 01/20/2025 Clinical Data: hep C Comparison: None. Findings: The gallbladder shows no sludge or stone. The wall measures 0.2 cm with no pericholecystic fluid. The gallbladder is enlarged measuring 11.1 cm in greatest diameter. The common bile duct is 0.4 cm and there are no intrahepatic ductal abnormalities. Liver shows no cysts, masses or dilated intrahepatic ducts. The liver echotexture shows fatty infiltration with minimal nodularity. The liver measures 17.5 cm. The portal vein is 1.1 cm with hepatopetal flow. The pancreas is obscured by overlying bowel gas but no cyst, pseudocyst, or evidence of pancreatitis is noted. Right kidney measures 11.9 cm and and there are 3 small cysts, the largest of which is 2.3 cm. The aorta and inferior vena cava show no vascular abnormalities. US/US liver [id number] Impression: 1. Nodular fatty liver with minimal enlargement. 2. Enlarged gallbladder. 3. Small renal cysts unchanged. 4. Pancreas obscured by overlying bowel gas.
== END 2025-02-07 23:59 | disposition home or self-care (01) ==
LOC: RAD 08:28 → ONCMED 09:16
PROVIDERS: PCP Family Medicine; Visit Provider Student in an Organized Health Care Education/Training Program
DX: B19.20 Unspecified viral hepatitis C without hepatic coma (principal); D69.6 Thrombocytopenia, unspecified; F17.210 Nicotine dependence, cigarettes, uncomplicated; Z79.899 Other long term (current) drug therapy
CPT/HCPCS: 76705

== ENCOUNTER → 2025-01-26 09:30 | Outpatient (BNVA) | payer MEDICARE, MEDICAID, SELFPAY | PROVIDERS: PCP Family Medicine; Visit Provider Student in an Organized Health Care Education/Training Program | DX: B19.20 Unspecified viral hepatitis C without hepatic coma (principal) | CPT/HCPCS: 80053; 85025 ==

== ENCOUNTER → 2025-03-01 09:55 | Outpatient (BNVA) | payer MEDICARE, MEDICAID, SELFPAY | PROVIDERS: PCP Family Medicine; Visit Provider Psychiatry & Neurology Psychiatry | DX: Z79.899 Other long term (current) drug therapy (principal); F33.40 Major depressive disorder, recurrent, in remission, unspecified; F20.89 Other schizophrenia; F41.1 Generalized anxiety disorder; R53.83 Other fatigue; Z01.89 Encounter for other specified special examinations | CPT/HCPCS: 80061; 82040; 83036; 84270; 84403; 85025 ==

== ENCOUNTER 2025-03-14 13:39 | Oncology outpatient (recurring) (ONCR) | payer OTHER, MEDICAID, SELFPAY ==
[2025-03-14 13:58] LABS: Hematocrit 49.1 % (37-53); Hemoglobin 17.00 g/dL (11.27-16.99); Mean Corpuscular HGB Conc 34.6 g/dL (30-55); Mean Corpuscular Hemoglobin 32.9 pg (27-33); Mean Corpuscular Volume 95.0 fl (82-101); Nucleated Red Blood Cells % 0 %; Platelet Count 62 10^3/cmm (157-399); Red Blood Count 5.17 10^6/uL (3.85-5.65); White Blood Count 10.83 10^3/uL (3.29-11.43)
[2025-03-14 14:11] LABS: Alanine Aminotransferase 14 U/L (0-41); Albumin Level 4.1 g/dL (3.5-5.2); Alkaline Phosphatase 77 U/L (40-130); Anion Gap 13.0 (5-19); Aspartate Amino Transferase 23 U/L (0-40); Blood Urea Nitrogen 9 mg/dL (6-20); Calcium 9.5 mg/dL (8.5-10.5); Carbon Dioxide 28 mmol/L (22-29); Chloride 104 mmol/L (98-107); Creatinine Clr Calc Pharmacy 105.5061; Globulin 2.8 g/dL (1.3-4.6); Glucose 89 mg/dL (65-115); Osmolality Calculated 290 mOsm/kg (285-295); Potassium 4.0 mmol/L (3.5-5.1); Sodium 141 mmol/L (136-145); Total Protein 6.9 g/dL (6.6-8.7)
== END 2025-04-10 23:59 | disposition home or self-care (01) ==
LOC: ONCMED 13:40
PROVIDERS: Nurse Practitioner Family; PCP Family Medicine; Visit Provider Student in an Organized Health Care Education/Training Program
DX: B19.20 Unspecified viral hepatitis C without hepatic coma (principal); K76.0 Fatty (change of) liver, not elsewhere classified; D69.6 Thrombocytopenia, unspecified; F17.210 Nicotine dependence, cigarettes, uncomplicated; Z79.899 Other long term (current) drug therapy; K82.8 Other specified diseases of gallbladder; N28.1 Cyst of kidney, acquired
CPT/HCPCS: 36415; 80053; 85025; 99213

== ENCOUNTER → 2025-04-22 09:42 | Outpatient (BNVA) | payer OTHER, MEDICAID, SELFPAY | PROVIDERS: PCP Family Medicine; Visit Provider Psychiatry & Neurology Psychiatry | DX: Z79.899 Other long term (current) drug therapy (principal); F20.89 Other schizophrenia | CPT/HCPCS: 85007; 85027 ==

== ENCOUNTER → 2025-05-02 09:22 | Outpatient (BNVA) | payer MEDICARE, SELFPAY | PROVIDERS: PCP Family Medicine; Visit Provider Family Medicine | DX: E29.1 Testicular hypofunction (principal) | CPT/HCPCS: 80053; 84403; 85025 ==

== ENCOUNTER → 2025-05-31 10:41 | Outpatient (BNVA) | payer MEDICARE, MEDICAID, OTHER, SELFPAY | PROVIDERS: PCP Family Medicine; Visit Provider Psychiatry & Neurology Psychiatry | DX: F20.89 Other schizophrenia (principal); Z79.899 Other long term (current) drug therapy | CPT/HCPCS: 85025 ==